=== PATIENT | female | born 1945 | race Caucasian/White ===

== ENCOUNTER 2016-05-21 23:47 | Emergency (ER) | payer MEDICARE, OTHER ==
[2015-07-09 08:26] VITALS: BMI 42.4
[~2016-05-21 23:47] MED LIST: CALCIUM WITH D3 PO; CELEXA20 MG PO; COUMADIN2.5 MG PO; COUMADIN5 MG PO; HYZAAR 100-25 T1 TAB PO; K-TAB10 MEQ PO; LANOXIN250 MCG PO; LASIX20 MG PO; MELATONIN 3 MG1 TAB PO; PINDOLOL10 MG PO; PRILOSEC20 MG PO; ROBAXIN-750750 MG PO; RYTHMOL225 MG PO; SYNTHROID125 MCG PO; SYNTHROID200 MC1 PO; TOPROL XL25 MG PO; ULTRAM50 MG PO; VENTOLIN HFA18 GM INH; VITAMIN B-12500 MCG PO; ZESTRIL10 MG PO
== END 2016-05-22 02:24 | disposition home or self-care (01) ==
LOC: D.ER 23:47
DX: M10.9 Gout, unspecified (principal); K27.9 Peptic ulcer, site unspecified, unspecified as acute or chronic, without hemorrhage or perforation; C50.912 Malignant neoplasm of unspecified site of left female breast; D68.9 Coagulation defect, unspecified; I10 Essential (primary) hypertension; E07.9 Disorder of thyroid, unspecified

== ENCOUNTER 2016-08-07 10:15 | Emergency (ER) | payer MEDICARE, OTHER ==
[2015-07-09 08:26] VITALS: BMI 42.4
[2016-08-07 11:06] LABS: BASOPHILS 0.4 % (0.0-2.0); EOSINOPHILS 8.3 % (0-7); HEMATOCRIT 38.2 % (36.0-48.0); HEMOGLOBIN 12.6 g/dL (12-16); LYMPHOCYTES 42.2 % (15-50); MCH 29.5 pg (26.0-34.0); MCV 89.5 fL (80.0-100.0); MEAN PLATELET VOLUME 9.9 fL (7.4-10.4); MONOCYTES 7.9 % (2-11); NEUTROPHILS 41.2 % (40-80); PLATELET COUNT 160 10x3/uL (130-400); RBC 4.27 10x6/uL (4.00-5.40); RDW 13.9 % (11.5-14.5); WBC 4.9 10x3/uL (4.8-10.8)
[2016-08-07 11:13] LABS: APTT 57.7 SECONDS (22.8-39.4); INR 3.81 (0.85-1.17)
[2016-08-07 11:34] LABS: ALBUMIN 3.2 g/dL (3.4-5.0); ALKALINE PHOSPHATASE 55 U/L (46-116); ALT (SGPT) 36 U/L (10-68); BILIRUBIN - TOTAL 0.49 mg/dL (0.2-1.3); CALC OSMOLALITY 282 mosm/kg (275-300); CALCIUM 8.4 mg/dL (8.5-10.1); CARBON DIOXIDE 28.4 mmol/L (21.0-32.0); CHLORIDE - SERUM 99 mmol/L (98-107); CREATININE - SERUM 1.2 mg/dL (0.6-1.3); GLUCOSE 103 mg/dL (74-106); POTASSIUM - SERUM 4.3 mmol/L (3.5-5.1); PROTEIN - SERUM 7.4 g/dL (6.4-8.2); SODIUM 140 mmol/L (136-145); UREA NITROGEN 23 mg/dL (7-18); eGFR NON AFRICAN AMERICAN 47 mL/min (90-120)
[2016-08-07 11:42] LABS: APPEARANCE HAZY (CLEAR); BILIRUBIN NEGATIVE (NEGATIVE); COLOR STRAW (YELLOW); GLUCOSE NEGATIVE (NEGATIVE); KETONE NEGATIVE (NEGATIVE); LEUKOCYTE ESTERASE NEGATIVE (NEGATIVE); NITRITE NEGATIVE (NEGATIVE); PROTEIN NEGATIVE (NEGATIVE); UROBILINOGEN NORMAL (NORMAL)
[2016-08-07 11:45] LABS: CKMB 3.1 U/L (0.0-3.6); CREATINE KINASE 140 UL (21-215); TROPONIN-I < 0.017 ng/mL (0.000-0.060)
== END 2016-08-07 12:50 | disposition home or self-care (01) ==
LOC: D.ER 10:15
PROVIDERS: Emergency Medicine; Nurse Practitioner Family
DX: J06.9 Acute upper respiratory infection, unspecified (principal); R07.89 Other chest pain; J40 Bronchitis, not specified as acute or chronic; C50.912 Malignant neoplasm of unspecified site of left female breast; K27.9 Peptic ulcer, site unspecified, unspecified as acute or chronic, without hemorrhage or perforation; D68.8 Other specified coagulation defects; I10 Essential (primary) hypertension

== ENCOUNTER → 2016-08-14 13:38 | Outpatient (CLI) | payer MEDICARE, OTHER ==
[2015-07-09 08:26] VITALS: BMI 42.4
== END | disposition home or self-care (01) ==
LOC: D.CT 13:38
DX: R10.11 Right upper quadrant pain (principal)

== ENCOUNTER 2016-10-09 15:28 | Emergency (ER) | payer MEDICARE, OTHER ==
[2015-07-09 08:26] VITALS: BMI 42.4
[2016-10-09 16:35] LABS: BASOPHILS 0.3 % (0-2); EOSINOPHILS 3.9 % (0-7); HEMATOCRIT 39.8 % (36.0-48.0); HEMOGLOBIN 13.2 g/dL (12-16); IMMATURE GRANULOCYTES 0.1 % (0-5); LYMPHOCYTES 37.1 % (15-50); MCH 30.2 pg (26.0-34.0); MCHC 33.2 g/dL (31.0-37.0); MCV 91.1 fL (80.0-100.0); MEAN PLATELET VOLUME 10.1 fL (7.4-10.4); MONOCYTES 10.1 % (2-11); NEUTROPHILS 48.5 % (40-80); PLATELET COUNT 158 10x3/uL (130-400); RBC 4.37 10x6/uL (4.00-5.40); RDW 13.7 % (11.5-14.5); WBC 6.7 10x3/uL (4.8-10.8)
[2016-10-09 17:07] LABS: ALBUMIN 3.5 g/dL (3.4-5.0); ANION GAP 13.7 mmol/L (8-16); BILIRUBIN - TOTAL 0.54 mg/dL (0.2-1.3); CALCIUM 8.8 mg/dL (8.5-10.1); CARBON DIOXIDE 27.6 mmol/L (21.0-32.0); CREATININE - SERUM 1.3 mg/dL (0.6-1.3); POTASSIUM - SERUM 4.3 mmol/L (3.5-5.1); PROTEIN - SERUM 7.5 g/dL (6.4-8.2)
[2016-10-09 17:35] LABS: INR 1.39 (0.85-1.17)
== END 2016-10-09 19:51 | disposition home or self-care (01) ==
LOC: D.ER 15:28
PROVIDERS: Emergency Medicine Emergency Medical Services
DX: I80.9 Phlebitis and thrombophlebitis of unspecified site (principal); C50.912 Malignant neoplasm of unspecified site of left female breast; D68.8 Other specified coagulation defects; I10 Essential (primary) hypertension

== ENCOUNTER → 2016-10-18 08:12 | Outpatient (CLI) | payer MEDICARE, OTHER ==
[2015-07-09 08:26] VITALS: BMI 42.4
== END | disposition home or self-care (01) ==
LOC: D.US 08:00
DX: K76.6 Portal hypertension (principal)

== ENCOUNTER 2018-10-07 15:50 | Emergency (ER) | payer MEDICARE, BC ==
[~2018-10-07] VITALS: Ht 162.6 cm; Wt 116.8 kg
[2018-10-07 16:13] VITALS: Ht 162.6 cm; Wt 116.8 kg
[2018-10-07] MEDS ORDERED: VITAMIN D250000 UNIT PO (16:17)
[2018-10-07] MEDS ORDERED: EFFEXOR XR150 MG PO (16:17)
[2018-10-07 17:46] LABS: BASOPHILS 0.5 % (0-2); EOSINOPHILS 3.6 % (0-7); HEMATOCRIT 39.7 % (36.0-48.0); HEMOGLOBIN 13.4 g/dL (12-16); IMMATURE GRANULOCYTES 0.2 % (0-5); LYMPHOCYTES 42.1 % (15-50); MCH 31.9 pg (26.0-34.0); MCHC 33.8 g/dL (31.0-37.0); MCV 94.5 fL (80.0-100.0); MEAN PLATELET VOLUME 9.3 fL (7.4-10.4); MONOCYTES 9.8 % (2-11); NEUTROPHILS 43.8 % (40-80); PLATELET COUNT 168 10x3/uL (130-400); RDW 14.9 % (11.5-14.5); WBC 5.5 10x3/uL (4.8-10.8)
[2018-10-07 18:02] LABS: ALBUMIN 3.4 g/dL (3.4-5.0); BILIRUBIN - TOTAL 0.54 mg/dL (0.2-1.3); CALCIUM 8.7 mg/dL (8.5-10.1); CARBON DIOXIDE 30.2 mmol/L (21.0-32.0); CREATININE - SERUM 1.2 mg/dL (0.6-1.3); POTASSIUM - SERUM 4.2 mmol/L (3.5-5.1); PROTEIN - SERUM 7.7 g/dL (6.4-8.2)
[2018-10-07 18:05] LABS: APTT 37.6 SECONDS (22.8-39.4); INR 2.4 (0.85-1.17); PROTIME 25.5 SECONDS (11.6-15.0)
[2018-10-07 18:06] LABS: D-DIMER-QUANTITATIVE 0.29 ug/mLFEU (0.20-0.54)
[2018-10-07 19:36] VITALS: BP 152/88
== END 2018-10-07 19:36 | disposition home or self-care (01) ==
LOC: D.ER 15:50
PROVIDERS: Family Medicine
DX: M54.10 Radiculopathy, site unspecified (principal)

== ENCOUNTER → 2019-04-29 10:13 | Outpatient (CLI) | payer MEDICARE, BC ==
[2018-10-07 16:13] VITALS: BMI 44.2
[~2019-04-29 10:13] MED LIST changes: +EFFEXOR XR150 MG PO; +VITAMIN D250000 UNIT PO
--- NOTE | 2019-05-01 11:31 | EC ---
PATIENT:GERMAN EDDY DATE OF SERVICE: 04/29/19 SEX: F MEDICAL RECORD: [id number] DATE OF : 43 LOCATION:[facility] AGE OF PATIENT: 73 ADMISSION DATE: 04/29/19 REFERRING PHYSICIAN: INTERPRETING PHYSICIAN: ADITYA MIN MD ECHOCARDIOGRAM REPORT ECHO CHARGES 4 ECHO COMPLETE Date: 04/29/19 CLINICAL DIAGNOSIS: PULMONARY HTN/MR H/O HTN/A-FIB ECHOCARDIOGRAPHIC MEASUREMENTS (adult normal given) AC root (d.<3.7cm) 3.1 cm LV Septum d (<1.2 cm> 1.5 cm Valve Excursion 2.1 cm LV Septum (systole) 1.8 cm Left Atria (s.<4.0cm> 4.5 cm LVPW d(<1.2cm) 1.1 cm RV (d.<2.3cm) 2.9 cm LVPW (sytole) 1.7 cm LV diastole(<5.6CM) 5.1 cm MV E-F(>70mm/sec) cm LV systole 3.0 cm LVOT Diameter 1.8 cm MV exc.(>10mm) cm Est.ejection fraction (50-75%) % DOPPLER: LVIT cm/sec A 113 cm/sec E 129 cm/sec LA cm/sec RVSP 36.0 mmHg LVOT 95.0 cm/sec AOP1/2T m/s Asc. Ao 169 cm/sec RVOT 59.0 cm/sec RA cm/sec PA 100 cm/sec AV Gradient Peak 11.4 mmHg AV Mean 6.0 mmHg AV Area 1.8 cm MV Gradient Peak 6.9 mmHg MV Mean 2.5 mmHg MV Area cm COMMENTS: OP - HC Assistant Director Of Admissions: 1 JAIME DAYO Commercial Leasing Manager: 3 Dr. Hicks TAPE# PACS Pericardial Effusion N DATE OF SERVICE: Adequate 2D, color flow, spectral Doppler, and M-mode. LVH is present. LV internal dimension is normal. Wall motion is normal. EF is greater than or equal to 55%. Aortic valve is tricuspid. No evidence of stenosis by Doppler interrogation. Left atrium is only 4.5 cm. Mitral valve is thickened. Mild plus MR. Right-sided chambers are grossly normal. Mild TR. RV systolic pressure is estimated greater than or equal to 36 mmHg via the continuity equation. ECHOCARDIOGRAM REPORT [id number] GERMAN EDDY TRANSINT:[id number] Voice Confirmation ID: [id number] DOCUMENT ID: [id number] ADITYA MIN MD at 1131 CC: [id number] DICTATION DATE: 04/30/19 1345 RUBBER COMPOUNDER SUPERVISOR: 04/30/192219 DEP CLI 04/29/19 [id number] [place] [address]
== END | disposition home or self-care (01) ==
LOC: D.HCCECHO 09:30 → D.HCCARDIO 09:30 → D.HCCECHO 10:13
PROVIDERS: ATTEND Internal Medicine Interventional Cardiology
DX: I34.0 Nonrheumatic mitral (valve) insufficiency (principal)